=== PATIENT | male | born 1990 | race African-American/Black ===

== ENCOUNTER 2018-06-18 13:13 | Emergency (ER) | payer MEDICAID ==
[~2018-06-18] VITALS: Ht 160 cm; Wt 90.0 kg
[2018-06-18 13:30] VITALS: BP 121/74
[2018-06-18] MEDS ORDERED: BACITRACIN ZINC OINT UDPKT TOP ONE (15:30)
[2018-06-18] MEDS ORDERED: LIDOCAINE HCL/PF 1% 2ML VIAL INFIL ONE (15:30)
[2018-06-18] MEDS ORDERED: TETANUS, DIPHTHERIA, PERTUSSIS VAC/PF 0.5ML (>7YR OLD) IM ONE (15:30)
[2018-06-18] MEDS ORDERED: LIDOCAINE HCL/PF 1% 10 MG/ML 5ML VIAL IJ ONE (15:46)
== END 2018-06-18 19:13 | disposition home or self-care (01) ==
LOC: ER 13:13
DX: S61.412A Laceration without foreign body of left hand, initial encounter (principal); F17.200 Nicotine dependence, unspecified, uncomplicated; W45.8XXA Other foreign body or object entering through skin, initial encounter; Y93.89 Activity, other specified; Y92.89 Other specified places as the place of occurrence of the external cause; Y99.8 Other external cause status
CPT/HCPCS: 12002; 73130; 90471; 90715; 99284; J3490; Z7610

== ENCOUNTER 2018-06-30 14:03 | Emergency (ER) | payer MEDICAID ==
[~2018-06-30] VITALS: Ht 160 cm; Wt 59.0 kg
[2018-06-30 15:08] VITALS: BP 112/68
== END 2018-06-30 17:07 | disposition home or self-care (01) ==
LOC: ER 14:03
DX: S61.211D Laceration without foreign body of left index finger without damage to nail, subsequent encounter (principal); X58.XXXD Exposure to other specified factors, subsequent encounter
CPT/HCPCS: 99281

== ENCOUNTER 2020-06-14 01:36 | Emergency (ER) | payer MEDICAID, OTHER ==
[~2020-06-14] VITALS: Ht 160 cm; Wt 64.0 kg
[2020-06-14] MEDS ORDERED: CEPHALEXIN 250MG CAPSULE PO ONE (02:15)
[2020-06-14] MEDS ORDERED: TETANUS, DIPHTHERIA, PERTUSSIS VAC/PF 0.5ML (>7YR OLD) IM ONE (02:15)
[2020-06-14] MEDS ORDERED: SULFAMETHOXAZOLE/TRIMETHOPRIM 800/160MG TABLET PO ONE (02:15)
[2020-06-14 02:50] VITALS: BP 117/71
== END 2020-06-14 02:50 | disposition home or self-care (01) ==
LOC: ER 01:36
DX: S91.301A Unspecified open wound, right foot, initial encounter (principal); X58.XXXA Exposure to other specified factors, initial encounter; Y93.89 Activity, other specified; Y92.89 Other specified places as the place of occurrence of the external cause; R03.0 Elevated blood-pressure reading, without diagnosis of hypertension; Z23 Encounter for immunization
CPT/HCPCS: 90471; 90715; 99283